=== PATIENT | female | born 1960 | race Caucasian/White ===

== ENCOUNTER → 2016-10-22 | Day surgery (SDC) | payer OTHER ==
[~2016-10-22] VITALS: Ht 160 cm; Wt 81.5 kg
[~2016-10-22] MED LIST: BACL10TA PO; BENA25CA4 PO; CHLORHEXIDINE GLUCONATE 2 % 1 PACK (2 CLOTHS) TOPICAL PRN; CRANCAP2 PO; DOCU240C8 PO; FAMOTIDINE 20 MG/2 ML VIAL ONE; GABA300C5 PO; INSULIN HUMAN REGULAR 1,000 UNITS/10 ML VIAL SQ PRN; LACTATED RINGER'S 1000 ML IV PRN; LEVS0.124 SL; LIDOCAINE HCL 2% JELLY 5 ML SYRINGE ONE; LINA290C PO; METOPROLOL TARTRATE 25 MG TAB PO PRN; OXYC1TAB36 PO; SODIUM CHLORID 0.9% 500 ML IV PRN; TEMA15CA PO; TRAZ100T6 PO; VITA250T3 PO; ceFAZolin 1,000 MG/NS 100 ML IV SCH
[2016-10-22 07:24] VITALS: BP 158/96; PULSE 68; RESP 18; TEMP 98.6; O2SAT 100
[2016-10-22 07:37] LABS: AUTOMATED NEUTROPHIL # 3.2 TH/MM3 (1.8-7.7); BASOPHIL # 0.2 TH/MM3 (0-0.2); BASOPHIL % 1.8 % (0.0-2.0); EOSINOPHIL # 0.6 TH/MM3 (0-0.4); EOSINOPHIL % 6.8 % (0.0-4.0); HEMATOCRIT 43.3 % (35.0-46.0); HEMO FLAGS DIFF FINAL; LYMPH % 46.2 % (9.0-44.0); LYMPHOCYTE # 3.9 TH/MM3 (1.0-4.8); MEAN CELL VOLUME 90.3 FL (80.0-100.0); MEAN CORPUSCULAR HEMOGLOBIN 29.6 PG (27.0-34.0); MEAN CORPUSCULAR HGB CONC 32.8 % (32.0-36.0); MONO % 7.2 % (0.0-8.0); PLATELET COUNT 324 TH/MM3 (150-450); RED BLOOD COUNT 4.79 MIL/MM3 (4.00-5.30); RED CELL DISTRIBUTION WIDTH 14.3 % (11.6-17.2); WHITE BLOOD COUNT 8.5 TH/MM3 (4.0-11.0)
--- NOTE | 2016-10-22 08:15 | EKG ---
Date Performed: 10/22/2016 Time Performed: 07:06:48 PTAGE: 56 years EKG: Sinus rhythm NORMAL ECG NO PREVIOUS TRACING DOCTOR: Teo Uriostegui Interpretating Date/Time 10/22/2016 08:11:19
--- NOTE | 2016-10-22 09:25 | PD.OP ---
Operative Report Date of Surgery: Oct 22, 2016 Preoperative Diagnosis: Neurogenic bladder with history of chronic indwelling SP tube Postoperative Diagnosis: Same Procedure: Flexible cystoscopy Anesthesia: None Surgeon: Wilder Martinez Cigar Roller(s): None Resident Surgeon: None Operation and Findings: 56-year-old female with history of muscular dystrophy with neurogenic bladder and chronic indwelling suprapubic tube for over 7 years. Patient being brought to the operating room undergo flexible cystoscopy. Due to the patient's large size we were unable to get her on the cystoscopy table in the office and this is the reason for bringing her to the operating room. Risk and benefits were discussed. Plan she is willing to proceed. Patient was brought to the operating room and left on the stretcher in the supine position. She was prepped and draped in usual sterile fashion and received preprocedure antibiotics. The 22 Indonesian suprapubic tube was removed and flexible cystoscopy was performed through the opening for the SP tube. 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 She tolerated the procedure well or no complications. She'll follow-up in 6 months in the office and continue with every 2 week catheter changes at home. Wilder Martinez DO Oct 22, 2016 09:25
[2016-10-22 10:30] VITALS: BP 142/87; PULSE 65; RESP 16; TEMP 97.6; O2SAT 96
== END | disposition home or self-care (01) ==
LOC: HSDC 06:19
PROVIDERS: ATTEND Urology
DX: N31.9 Neuromuscular dysfunction of bladder, unspecified (principal); G71.0 Muscular dystrophy; N30.90 Cystitis, unspecified without hematuria; Z01.810 Encounter for preprocedural cardiovascular examination; Z96.0 Presence of urogenital implants
CPT/HCPCS: 52000; 85025; 93005; J0690; J7120